=== PATIENT | male | born 1995 | race Caucasian/White ===

== ENCOUNTER 2016-11-06 23:42 | Emergency (ER) | payer OTHER ==
[~2016-11-06] VITALS: Ht 172.7 cm; Wt 90.7 kg
[2016-11-07] MEDS ORDERED: TOPAMAX50 MG PO ×2 (00:10→02:31)
[2016-11-07] MEDS ORDERED: PROMETHAZINE HC25 M1 PO (01:06)
[2016-11-07] MEDS ORDERED: FIORINAL 50-321 EACH PO (01:07)
[2016-11-07] MEDS ORDERED: PROAIR HFA8.5 GM INH (01:08)
[2016-11-07] MEDS ORDERED: IMITREX25 MG PO (01:08)
== END 2016-11-07 02:42 | disposition home or self-care (01) ==
LOC: ED 23:42
DX: Z76.0 Encounter for issue of repeat prescription (principal); J45.909 Unspecified asthma, uncomplicated; F17.200 Nicotine dependence, unspecified, uncomplicated; Z79.899 Other long term (current) drug therapy
CPT/HCPCS: 99283